=== PATIENT | female | born 1935 | race Asian ===

== ENCOUNTER 2016-07-15 07:25 | Emergency (ER) | payer MEDICARE, OTHER ==
[2016-07-15] MEDS ORDERED: OXYMETAZOLINE NASAL SPRAY NAS STA (07:50)
[2016-07-15] MEDS ORDERED: OXYMETAZOLINE NASAL SPRAY NAS ONE (07:53)
== END 2016-07-15 08:45 | disposition home or self-care (01) ==
DX: R04.0 Epistaxis (principal)
CPT/HCPCS: 30901; 36415; 85025; 99282; 99283; A9270

== ENCOUNTER 2017-05-18 09:59 | Emergency (ER) | payer MEDICARE, OTHER ==
[2017-05-18 10:17] VITALS: BP 144/91
[2017-05-18] MEDS ORDERED: LIDOCAINE 1%-EPI 1:100000 20 ML MDV SUBQ STA (10:19)
--- NOTE | 2017-05-18 10:21 | ED Physician Documentation ---
PD HPI HEENT - Stated complaint Stated Complaint: NOSE BLEED - Chief complaint Chief Complaint: Heent - History obtained from History obtained from: Patient - History of Present Illness Timing - onset: Today Timing - details: Now resolved Location: Nose - Additional information Additional information: The patient is a 80-year-old female who presents with left sided nosebleed that started when she awoke this morning between 5:00 and 6:00 am. She presents now because it continues to bleed. She had similar nosebleed yesterday morning but it resolved spontaneously. She does not take blood thinner medication, and denies any recent injury. She is treated for hypertension. She has history of nosebleed several years ago, but not since then until yesterday. 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 - Present Medications Home Medications: Ambulatory Orders Medication Instructions Recorded Confirmed Levothyroxine [Synthroid] 0 mg PO DAILY 07/15/16 07/15/16 - Allergies Allergies/Adverse Reactions: Allergies Allergy/AdvReac Type Severity Reaction Status Date / Time No Known Drug Allergies Allergy Verified 03/04/14 13:19 - Social History Does the pt smoke?: No Smoking Status: Never smoker Does the pt drink ETOH?: No Does the pt have substance abuse?: No PD ED PE NORMAL - Vitals Vital signs reviewed: Yes (Hypertension initially.) - General General: Alert and oriented X 3, Well developed/nourished - HEENT HEENT: Atraumatic, EOMI, Ears normal, Pharynx benign, Other (Currently there is no epistaxis, but a bleeding site is noted on the septal surface in the left anterior nose. There is no blood in the posterior oropharynx.) - Neck Neck: No adenopathy, No JVD - Cardiac Cardiac: RRR, No murmur - Respiratory Respiratory: No respiratory distress, Clear bilaterally - Derm Derm: No rash - Extremities Extremities: No edema - Neuro Neuro: Alert and oriented X 3, No motor deficit, Normal speech Results - Vitals Vitals: Vital Signs - 24 hr 05/18/17 10:13 Temperature 36.9 C Heart Rate 84 Respiratory 18 Rate Blood Pressure 144/91 H O2 Saturation 98 Oxygen O2 Source Room air Procedures - Epistaxis Site: Left, Anterior Preparation: Lidocaine Treatment: Silver Nitrate Other: Observed - no bleeding, Pt tolerated well PD MEDICAL DECISION MAKING - ED course Complexity details: re-evaluated patient, considered differential, d/w patient, d/w family ED course: The patient's presentation is significant for left anterior epistaxis. Treatment in the emergency department included silver nitrate cautery after local anesthetic using 1% lidocaine with epinephrine. Cautery produced excellent results. I discussed with the patient and her the expected course of healing, as well as potentially worrisome signs or symptoms that should prompt reevaluation. Departure - Departure Disposition: 01 Home, Self Care Clinical Impression: Epistaxis, Acute anterior epistaxis Condition: Stable Instructions: ED Nosebleed Follow-Up: Sarwat Robledo MD [Primary Care Provider] - Comments: Try to avoid aggressive sneezing or blowing of your nose. Avoid putting your finger in your nose. Apply antibiotic ointment to the nasal mucosa using a cotton tip swab. Return to the emergency department if you develop recurrent nosebleed that does not resolve with 10-15 minutes of applying pressure. Discharge Date/Time: 05/18/17 11:51
== END 2017-05-18 11:51 | disposition home or self-care (01) ==
LOC: ED 09:59
DX: R04.0 Epistaxis (principal); I10 Essential (primary) hypertension
CPT/HCPCS: 30901; 99282

== ENCOUNTER 2017-10-21 18:07 | Emergency (ER) | payer MEDICARE, OTHER ==
[2017-10-21 18:26] VITALS: BP 132/87
[2017-10-21 18:35] LABS: BILIRUBIN,URINE NEGATIVE (NEGATIVE); GLUCOSE, URINE (UA) NEGATIVE (NEGATIVE); KETONES,URINE (UA) NEGATIVE (NEGATIVE); LEUKOCYTE ESTERASE, URINE LARGE (NEGATIVE); NITRITE,URINE NEGATIVE (NEGATIVE); OCCULT BLOOD,URINE LARGE (NEGATIVE); PH,URINE 5.5 PH (5.0-7.5); PROTEIN,URINE 30 mg/dL (NEGATIVE); UROBILINOGEN,URINE 0.2 (NORMAL) E.U./dL (NORMAL)
[2017-10-21 18:36] LABS: CLARITY,URINE HAZY (CLEAR)
[2017-10-21 18:37] LABS: HCG UR QUAL NEGATIVE
[2017-10-21 18:42] LABS: BACTERIA,URINE Many /HPF (None Seen); RBC,URINE TNTC /HPF (0-5); SQUAMOUS EPITHELIAL CELL,UR NONE SEEN (<= Few); WBC CLUMPS,URINE PRESENT
[2017-10-21 18:43] LABS: YEAST,URINE PRESENT
[2017-10-21] MEDS ORDERED: cephALEXin 250 MG CAPSULE PO STA (19:10)
--- NOTE | 2017-10-21 19:11 | ED Physician Documentation ---
History of Present Illness - Stated complaint Stated Complaint: FEMALE - Chief complaint Chief Complaint: General - History obtained from History obtained from: Patient, Family - History of Present Illness Timing: Last night Pain level max: 2 Pain level now: 0 Improved by: nothing Worsened by: urination - Additonal information Additional information: Patient is an 82-year-old female who presents to the emergency department with lower abdominal discomfort, dysuria and hematuria since last night. Has history of UTIs with same. 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 - Present Medications Home Medications: Ambulatory Orders Medication Instructions Recorded Confirmed Levothyroxine [Synthroid] 0 mg PO DAILY 07/15/16 07/15/16 Cephalexin [Keflex] 500 mg PO Q6H #20 capsule 10/21/17 - Allergies Allergies/Adverse Reactions: Allergies Allergy/AdvReac Type Severity Reaction Status Date / Time No Known Drug Allergies Allergy Verified 03/04/14 13:19 - Social History Does the pt smoke?: No Smoking Status: Never smoker Does the pt drink ETOH?: No Does the pt have substance abuse?: No - Immunizations Immunizations are current?: Yes - POLST Patient has POLST: No PD ED PE NORMAL - Vitals Vital signs reviewed: Yes - General General: Alert and oriented X 3, No acute distress - HEENT HEENT: Moist mucous membranes - Cardiac Cardiac: RRR - Respiratory Respiratory: No respiratory distress, Clear bilaterally - Abdomen Abdomen: Soft, Non tender, Non distended - Back Back: No CVA TTP - Derm Derm: Warm and dry - Neuro Neuro: Alert and oriented X 3 Results - Vitals Vitals: Vital Signs - 24 hr 10/21/17 18:22 Temperature 36.7 C Heart Rate 98 Respiratory 16 Rate Blood Pressure 132/87 H O2 Saturation 96 Oxygen O2 Source Room air - Labs Labs: Microbiology 10/21/17 18:25 Urine Culture - Preliminary Urine,Clean Catch Escherichia Coli Laboratory Tests 10/21/17 18:25 Urine Color YELLOW Urine Clarity HAZY Urine pH 5.5 Ur Specific [place] 1.010 Urine Protein 30 H Urine Glucose (UA) NEGATIVE Urine Ketones NEGATIVE Urine Occult Blood LARGE H Urine Nitrite NEGATIVE Urine Bilirubin NEGATIVE Urine Urobilinogen 0.2 (NORMAL) Ur Leukocyte Esterase LARGE H Urine RBC TNTC H Urine WBC >25 H Urine WBC Clumps PRESENT Ur Squamous Epith Cells NONE SEEN Urine Bacteria Many H Urine Yeast PRESENT Ur Microscopic Review INDICATED Urine Culture Comments INDICATED Urine HCG, Qual NEGATIVE PD MEDICAL DECISION MAKING - ED course Complexity details: reviewed results, considered differential, d/w patient, d/w family ED course: Patient is an 82-year-old female who presents to the emergency department with a UTI. Will place on antibiotics. No evidence of pyelonephritis, urosepsis. She is well-appearing, nontoxic. Patient counseled regarding signs and symptoms for which I believe and urgent re-evaluation would be necessary. Patient with good understanding of and agreement to plan and is comfortable going home at this time This document was made in part using voice recognition software. While efforts are made to proofread this document, sound alike and grammatical errors may occur. Departure - Departure Disposition: 01 Home, Self Care Clinical Impression: UTI (urinary tract infection) Qualifiers: Urinary tract infection type: acute cystitis Hematuria presence: with hematuria Qualified Code(s): N30.01 - Acute cystitis with hematuria Condition: Good Instructions: ED UTI Cystitis Female Follow-Up: Sarwat Robledo MD [Primary Care Provider] - Within 1 week Prescriptions: Cephalexin [Keflex] 500 mg PO Q6H #20 capsule Comments: Take all antibiotics until gone. Return if you worsen. Discharge Date/Time: 10/21/17 19:18
== END 2017-10-21 19:18 | disposition home or self-care (01) ==
LOC: ED 18:07
DX: N30.01 Acute cystitis with hematuria (principal); I10 Essential (primary) hypertension; Z87.440 Personal history of urinary (tract) infections
CPT/HCPCS: 81001; 81025; 87086; 87181; 99283; A9270; 81003

== ENCOUNTER 2017-11-30 11:51 | Outpatient (CLI) | payer MEDICARE, OTHER ==
--- NOTE | 2017-11-30 12:08 | XRAY Report ---
Procedure Date: 11/30/2017 Accession Number: [id number] / [id number] Procedure: XR - Chest 2 View X-Ray CPT Code: 35870 FULL RESULT: EXAM: Chest 2 View X-Ray DATE: 11/30/2017 12:04 PM CLINICAL HISTORY: BRONCHITIS COMPARISON: CT 06/16/2015, chest x-ray 03/04/2014 TECHNIQUE: 2 views. FINDINGS: Lungs/Pleura: No focal infiltrate, effusion, or pneumothorax. Stable basilar bronchiectasis. Mediastinum: Heart and mediastinal contours are unremarkable. Other: None. IMPRESSION: Stable bronchiectasis. No evidence of acute cardiopulmonary disease. RADIA
== END 2017-11-30 11:52 | disposition home or self-care (01) ==
LOC: DI 11:51
PROVIDERS: ATTEND Family Medicine
DX: J47.9 Bronchiectasis, uncomplicated (principal)
CPT/HCPCS: 71046

== ENCOUNTER 2018-07-09 20:43 | Emergency (ER) | payer MEDICARE, OTHER ==
[2018-07-09 21:27] LABS: BASOPHILS # (AUTO) 0.1 10^3/uL (0.0-0.1); BASOPHILS % (AUTO) 0.8 %; EOSINOPHILS # (AUTO) 0.4 10^3/uL (0.0-0.7); EOSINOPHILS % (AUTO) 5.5 %; HGB - HEMOGLOBIN 12.5 g/dL (12.0-16.0); LYMPHOCYTES # (AUTO) 2.8 10^3/uL (1.5-3.5); MEAN CORPUSCULAR HEMOGLOBIN 29.5 pg (27.0-31.0); MEAN CORPUSCULAR HGB CONC 32.6 g/dL (32.0-36.0); MEAN CORPUSCULAR VOLUME 90.5 fL (81.0-99.0); MEAN PLATELET VOLUME 7.6 fL (7.9-10.8); MONOCYTES # (AUTO) 0.5 10^3/uL (0.0-1.0); MONOCYTES % (AUTO) 7.5 %; NEUTROPHILS # (AUTO) 3.5 10^3/uL (1.5-6.6); NEUTROPHILS % (AUTO) 48.2 %; PLT - PLATELET COUNT 258 10^3/uL (130-450); RED BLOOD COUNT 4.25 10^6/uL (4.20-5.40); RED CELL DISTRIBUTION WIDTH 13.2 % (12.0-15.0); WHITE BLOOD COUNT 7.3 x10^3/uL (4.8-10.8)
[2018-07-09 21:33] LABS: INR 1.1 (0.8-1.2); PT - PROTHROMBIN TIME 12.3 secs (9.9-12.6)
--- NOTE | 2018-07-09 21:34 | ED Physician Documentation ---
History of Present Illness - Stated complaint Stated Complaint: VOMITING BLOOD - Chief complaint Chief Complaint: Resp - History obtained from History obtained from: Patient - History of Present Illness Timing: Today (this morning) Pain level max: 0 Pain level now: 0 Improved by: nothing Worsened by: no exacerbating factors - Additonal information Additional information: coughing since this morning, took aspirin this morning (she says she took this thinking it would help with cough; she says she does not take aspirin on a regular basis). She says the cough was not productive but that she noted "blood in my spit". She says this evening she lay down and subsequently had vomiting with blood and small clots Review of Systems Constitutional: denies: Fever, Chills, Sweats Cardiac: reports: Reviewed and negative Respiratory: denies: Dyspnea, Cough, Hemoptysis, Wheezing GI: reports: Nausea, Vomiting, Hematemesis. 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 - Present Medications Home Medications: Ambulatory Orders Medication Instructions Recorded Confirmed Levothyroxine [Synthroid] 1 tab PO DAILY 07/15/16 07/09/18 Cephalexin [Keflex] 500 mg PO Q6H #20 capsule 10/21/17 - Allergies Allergies/Adverse Reactions: Allergies Allergy/AdvReac Type Severity Reaction Status Date / Time No Known Drug Allergies Allergy Verified 07/09/18 20:54 - Social History Does the pt smoke?: No Smoking Status: Former smoker Does the pt drink ETOH?: No Does the pt have substance abuse?: No - Immunizations Immunizations are current?: Yes - POLST Patient has POLST: No PD ED PE NORMAL - Vitals Vital signs reviewed: Yes - General General: Alert and oriented X 3, No acute distress, Well developed/nourished - Cardiac Cardiac: RRR, No murmur - Respiratory Respiratory: No respiratory distress, Clear bilaterally - Abdomen Abdomen: Normal bowel sounds, Soft, Non tender, Non distended, No organomegaly - Derm Derm: Normal color, Warm and dry - Extremities Extremities: No edema Results - Vitals Vitals: Vital Signs - 24 hr 07/09/18 07/09/18 20:50 23:05 Temperature 36.7 C 36.5 C Heart Rate 96 87 Respiratory 18 18 Rate Blood Pressure 148/85 H 144/83 H O2 Saturation 97 96 Oxygen O2 Source Room air - Labs Labs: Laboratory Tests 07/09/18 07/09/18 07/09/18 21:21 21:21 21:21 WBC 7.3 RBC 4.25 Hgb 12.5 Hct 38.5 MCV 90.5 MCH 29.5 MCHC 32.6 RDW 13.2 Plt Count 258 MPV 7.6 L Neut # (Auto) 3.5 Lymph # (Auto) 2.8 [place] # (Auto) 0.5 Eos # (Auto) 0.4 Baso # (Auto) 0.1 Absolute Nucleated RBC 0.00 Nucleated RBC % 0.0 PT 12.3 INR 1.1 APTT 32.7 Sodium 137 Potassium 3.7 Chloride 103 Carbon Dioxide 25 Anion Gap 9.0 BUN 16 Creatinine 0.8 Estimated GFR (MDRD) 69 L Glucose 120 H Calcium 9.3 Total Bilirubin 0.7 AST 23 ALT 16 Alkaline Phosphatase 69 Total Protein 7.9 Albumin 4.2 Globulin 3.7 Albumin/Globulin Ratio 1.1 Lipase 53 H - Rads (name of study) chest xray Radiology: Prelim report reviewed, See rad report PD MEDICAL DECISION MAKING - ED course Complexity details: reviewed old records, reviewed results, re-evaluated baldemar wills, considered differential, d/w patient Departure - Departure Disposition: 01 Home, Self Care Clinical Impression: Upper GI bleeding Condition: Good Instructions: ED Bleed UGI Stable Comments: Follow up with your primary care provider: call in the morning to arrange for next available appointment. Discharge Date/Time: 07/09/18 23:06
[2018-07-09 21:40] LABS: ALBUMIN 4.2 g/dL (3.2-5.5); ALBUMIN/GLOBULIN RATIO 1.1 (1.0-2.2); BILIRUBIN,TOTAL 0.7 mg/dL (0.2-1.0); CALCIUM 9.3 mg/dL (8.5-10.3); CREATININE 0.8 mg/dL (0.4-1.0); TOTAL PROTEIN 7.9 g/dL (6.7-8.2)
--- NOTE | 2018-07-09 22:04 | XRAY Report ---
Reason: hemoptysis Procedure Date: 07/09/2018 Accession Number: [id number] / [id number] Procedure: XR - Chest 2 View X-Ray CPT Code: 28100 FULL RESULT: EXAM: CHEST RADIOGRAPHY EXAM DATE: 07/09/2018 09:35 PM. CLINICAL HISTORY: Hemoptysis. COMPARISON: CHEST 2 VIEW 11/30/2017 11:52 AM. TECHNIQUE: 2 views. FINDINGS: Lungs/Pleura: Stable mild bronchiectasis. No new consolidation, effusion, or pneumothorax. Mediastinum: Heart and mediastinal contours are unremarkable. Other: None. IMPRESSION: Stable mild basilar bronchiectasis. No significant interval change. RADIA
[2018-07-09] MEDS ORDERED: guaiFENesin/DEXTROMETHORPHAN 10 ML UDC PO STA (22:53)
[2018-07-09 23:06] VITALS: BP 144/83
== END 2018-07-09 23:06 | disposition home or self-care (01) ==
LOC: ED 20:43
DX: K92.2 Gastrointestinal hemorrhage, unspecified (principal); I10 Essential (primary) hypertension; E03.9 Hypothyroidism, unspecified; Z87.891 Personal history of nicotine dependence
CPT/HCPCS: 36415; 71046; 80053; 83690; 85025; 85610; 85730; 99283; A9270

== ENCOUNTER 2021-03-08 14:00 | Outpatient (CLI) | payer MEDICARE, OTHER | END 2021-03-08 23:59 | disposition home or self-care (01) | LOC: COV 14:00 | PROVIDERS: ATTEND Family Medicine | DX: R05.9 Cough, unspecified (principal); R06.02 Shortness of breath; Z20.822 Contact with and (suspected) exposure to COVID-19 ==

== ENCOUNTER 2021-11-21 07:05 | Emergency (ER) | payer MEDICARE, OTHER ==
[2021-11-21 07:36] LABS: BASOPHILS % (AUTO) 0.8 %; EOSINOPHILS # (AUTO) 0.2 10^3/uL (0.0-0.7); EOSINOPHILS % (AUTO) 3.8 %; HCT - HEMATOCRIT 40.8 % (37.0-47.0); HGB - HEMOGLOBIN 13.7 g/dL (12.0-16.0); LYMPHOCYTES # (AUTO) 1.9 10^3/uL (1.5-3.5); LYMPHOCYTES % (AUTO) 36.3 %; MEAN CORPUSCULAR HEMOGLOBIN 30.2 pg (27.0-31.0); MEAN CORPUSCULAR HGB CONC 33.6 g/dL (32.0-36.0); MEAN CORPUSCULAR VOLUME 90.1 fL (81.0-99.0); MEAN PLATELET VOLUME 9.9 fL (7.9-10.8); MONOCYTES # (AUTO) 0.4 10^3/uL (0.0-1.0); MONOCYTES % (AUTO) 7.6 %; NEUTROPHILS # (AUTO) 2.7 10^3/uL (1.5-6.6); NEUTROPHILS % (AUTO) 51.3 %; PLT - PLATELET COUNT 280 10^3/uL (130-450); RED BLOOD COUNT 4.53 10^6/uL (4.20-5.40); RED CELL DISTRIBUTION WIDTH 12.4 % (12.0-15.0); WHITE BLOOD COUNT 5.3 x10^3/uL (4.8-10.8)
[2021-11-21 07:48] LABS: ALBUMIN 4.3 g/dL (3.2-5.5); ALBUMIN/GLOBULIN RATIO 1.3 (1.0-2.2); BILIRUBIN,TOTAL 0.6 mg/dL (0.2-1.0); CALCIUM 9.4 mg/dL (8.5-10.3); CREATININE 0.6 mg/dL (0.4-1.0); POTASSIUM 3.6 mmol/L (3.5-5.0); TOTAL PROTEIN 7.5 g/dL (6.7-8.2)
[2021-11-21 08:07] LABS: BILIRUBIN,URINE NEGATIVE (NEGATIVE); GLUCOSE, URINE (UA) NEGATIVE (NEGATIVE); KETONES,URINE (UA) 40 mg/dL (NEGATIVE); LEUKOCYTE ESTERASE, URINE NEGATIVE (NEGATIVE); NITRITE,URINE NEGATIVE (NEGATIVE); OCCULT BLOOD,URINE NEGATIVE (NEGATIVE); PROTEIN,URINE NEGATIVE (NEGATIVE); UROBILINOGEN,URINE 1 (NORMAL) E.U./dL (NORMAL)
--- NOTE | 2021-11-21 08:12 | ED Physician Documentation ---
PD HPI ABD PAIN - Stated complaint Stated Complaint: ABD PX - Chief complaint Chief Complaint: Abd Pain - History obtained from History obtained from: Patient - History of Present Illness Timing - onset: How many days ago (3) Timing - duration: Days (3) Timing - details: Gradual onset Pain level max: 5 Pain level now: 4 Quality: Aching, Dull Location: Epigastric Radiation: No: Chest, , Lower back, Left flank, Left shoulder, Right flank, Right shoulder, Upper back Associated symptoms: No: Fever, Nausea, Vomiting, Hematemesis, Diarrhea Recently seen: Not recently seen - Additional information Additional information: 86-year-old female presents to the emergency department with epigastric abdominal pain that started about 3 days ago. Nothing seems to make it better or worse. She states it is constant, dull, aching. Nonradiating. No shortness of breath. No chest pain. She states that it does feel hard to take a deep breath because her stomach hurts. 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 : None HEENT: None Psych: None Musculoskeletal: Osteoarthritis Derm: None - Past Surgical History 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 - Present Medications Home Medications: Ambulatory Orders Medication Instructions Recorded Confirmed Levothyroxine [Synthroid] 25 tab PO DAILY 07/15/16 11/21/21 Albuterol Sulf [Ventolin Hfa 1 - 2 puffs INH Q4HR PRN #1 inhaler 11/21/21 Inhaler] Amlodipine Besylate [Norvasc] 10 mg PO DAILY 11/21/21 11/21/21 Azithromycin [Zithromax] 0 mg PO DAILY #6 tablet 11/21/21 Doxycycline Monohydrate 100 mg PO BID #20 cap 11/21/21 Levocetirizine Dihydrochloride 5 mg PO DAILY 11/21/21 11/21/21 Telmisartan 40 mg PO DAILY 11/21/21 11/21/21 - Allergies Allergies/Adverse Reactions: Allergies Allergy/AdvReac Type Severity Reaction Status Date / Time No Known Drug Allergies Allergy Verified 11/21/21 07:20 - Social History Does the pt smoke?: No Smoking Status: Former smoker Does the pt drink ETOH?: No Does the pt have substance abuse?: No - Immunizations Immunizations are current?: Yes - POLST Patient has POLST: No PD ED PE NORMAL - Vitals Vital signs reviewed: Yes - General General: Alert and oriented X 3, No acute distress - HEENT HEENT: PERRL, Moist mucous membranes - Neck Neck: Supple, no meningeal sign - Cardiac Cardiac: RRR, No murmur, Strong equal pulses - Respiratory Respiratory: No respiratory distress, Other (Bibasilar crackles) - Abdomen Abdomen: Soft, Non tender, Non distended - Back Back: No spinal TTP - Derm Derm: Warm and dry, No rash - Extremities Extremities: No edema - Neuro Neuro: Alert and oriented X 3 - Psych Psych: Normal mood, Normal affect Results - Vitals Vitals: Vital Signs - 24 hr 11/21/21 11/21/21 11/21/21 07:20 07:38 09:40 Temperature 36.8 C Heart Rate 88 85 82 Respiratory 22 16 24 Rate Blood Pressure 182/88 H 171/92 H 158/126 H O2 Saturation 96 96 99 11/21/21 11/21/21 10:51 11:00 Temperature Heart Rate 92 90 Respiratory 20 18 Rate Blood Pressure 141/105 H O2 Saturation 99 Oxygen O2 Source Room air - EKG (time done) 0840 Rate: Rate (enter#) (78) Rhythm: NSR [place]: Normal Intervals: Prolonged NV QRS: Normal Ischemia: Normal ST segments - Labs Labs: Laboratory Tests 11/21/21 11/21/21 11/21/21 07:25 07:25 07:25 WBC 5.3 RBC 4.53 Hgb 13.7 Hct 40.8 MCV 90.1 MCH 30.2 MCHC 33.6 RDW 12.4 Plt Count 280 MPV 9.9 Neut # (Auto) 2.7 Lymph # (Auto) 1.9 [place] # (Auto) 0.4 Eos # (Auto) 0.2 Baso # (Auto) 0.0 Absolute Nucleated RBC 0.00 Nucleated RBC % 0.0 Sodium 142 Potassium 3.6 Chloride 106 Carbon Dioxide 23 Anion Gap 13.0 BUN 15 Creatinine 0.6 Estimated GFR (MDRD) 95 Glucose 125 H Calcium 9.4 Total Bilirubin 0.6 AST 27 ALT 20 Alkaline Phosphatase 58 Troponin I High Sens 8.4 Total Protein 7.5 Albumin 4.3 Globulin 3.2 Albumin/Globulin Ratio 1.3 Lipase 49 Urine Color Urine Clarity Urine pH Ur Specific [place] Urine Protein Urine Glucose (UA) Urine Ketones Urine Occult Blood Urine Nitrite Urine Bilirubin Urine Urobilinogen Ur Leukocyte Esterase Ur Microscopic Review Urine Culture Comments 11/21/21 07:50 WBC RBC Hgb Hct MCV MCH MCHC RDW Plt Count MPV Neut # (Auto) Lymph # (Auto) [place] # (Auto) Eos # (Auto) Baso # (Auto) Absolute Nucleated RBC Nucleated RBC % Sodium Potassium Chloride Carbon Dioxide Anion Gap BUN Creatinine Estimated GFR (MDRD) Glucose Calcium Total Bilirubin AST ALT Alkaline Phosphatase Troponin I High Sens Total Protein Albumin Globulin Albumin/Globulin Ratio Lipase Urine Color YELLOW Urine Clarity CLEAR Urine pH 6.0 Ur Specific [place] 1.020 Urine Protein NEGATIVE Urine Glucose (UA) NEGATIVE Urine Ketones 40 H Urine Occult Blood NEGATIVE Urine Nitrite NEGATIVE Urine Bilirubin NEGATIVE Urine Urobilinogen 1 (NORMAL) Ur Leukocyte Esterase NEGATIVE Ur Microscopic Review NOT INDICATED Urine Culture Comments NOT INDICATED - Rads (name of study) CT abdomen pelvis Radiology: Final report received, EMP read contemporaneously, See rad report Chest x-ray Radiology: Final report received, EMP read contemporaneously, See rad report PD MEDICAL DECISION MAKING - ED course Complexity details: reviewed results, re-evaluated patient, considered differential, d/w patient, d/w family ED course: CT abdomen pelvis does not show any acute abnormality other than patchy airspace opacities in the bilateral lung bases. Does have a history of pneumonia. Has had coughing. We will place her on antibiotics for this. Patient is well- appearing, nontoxic. Afebrile. No hypoxia. No respiratory distress. Patient also felt better after albuterol. Will prescribe this for home as well Patient counseled regarding signs and symptoms for which I believe and urgent re- evaluation would be necessary. Patient with good understanding of and agreement to plan and is comfortable going home at this time This document was made in part using voice recognition software. While efforts are made to proofread this document, sound alike and grammatical errors may occur. IMPRESSION: 1. Patchy airspace opacities at the bilateral lung bases with bronchial wall thickening and bronchiectasis more severe on the left than on the right. Differential considerations include multifocal pneumonia, aspiration, and fibrotic change. Chest x-ray recommended to further characterize pulmonary findings. 2. No acute intra-abdominal findings. Normal appendix. IMPRESSION: Bibasilar opacities most notable on the left. This corresponds to areas of airspace opacities, bronchial wall thickening and bronchiectasis on recent CT. Departure - Departure Disposition: Home, Self Care Clinical Impression: Pneumonia Qualifiers: Pneumonia type: due to unspecified organism Laterality: bilateral Lung location: lower lobe of lung Qualified Code(s): J18.9 - Pneumonia, unspecified organism Abdominal pain Qualifiers: Abdominal location: unspecified location Qualified Code(s): R10.9 - Unspecified abdominal pain Condition: Good Instructions: ED Pneumonia Adult Follow-Up: Sarwat Robledo MD [Primary Care Provider] - Within 1 week Prescriptions: Albuterol Sulf [Ventolin Hfa Inhaler] 1 - 2 puffs INH Q4HR PRN #1 inhaler PRN Reason: Shortness Of Air/Wheezing Doxycycline Monohydrate 100 mg PO BID #20 cap Azithromycin [Zithromax] 0 mg PO DAILY #6 tablet Comments: Take all antibiotics until gone. Follow-up with your doctor for further care. Your prescriptions were sent to [facility]. You should have a repeat x-ray after you finish your treatment to ensure resolution of your x-ray. Discharge Date/Time: 11/21/21 11:07
[2021-11-21 08:33] LABS: CLARITY,URINE CLEAR (CLEAR)
--- NOTE | 2021-11-21 09:45 | CT Report ---
PROCEDURE: Abdomen/Pelvis WO INDICATIONS: epigastric abd pain TECHNIQUE: Noncontrast 5 mm thick sections acquired from the diaphragms to the symphysis. 5 mm coronal and sagi ttal reformats were then performed. For radiation dose reduction, the following was used: automated exposure control, adjustment of mA and/or kV according to patient size. COMPARISON: None. FINDINGS: Image quality: Excellent. ABDOMEN: Lung bases: Patchy airspace opacities, bronchial wall thickening, and bronchiectasis are present at t he bilateral lung bases. These findings are more severe on the left than on the right. Heart is rob l size a low density lesion within the right hepatic lobe likely represents a small hepatic cyst whic h is incompletely characterized.. No pericardial effusion. Solid organs: Liver and spleen are normal in size. A 2.5 cm lamellated gallstone is present within t he gallbladder fundus. No gallbladder wall thickening or pericholecystic fluid. Pancreas is normal in contours. No adrenal nodules. Kidneys are normal in size, without hydronephrosis or nephrolithiasi s. Peritoneum and bowel: Unenhanced bowel loops demonstrate normal wall thickness and caliber. The roseann endix is thin-walled. No free fluid or air. Nodes and vessels: No retroperitoneal or mesenteric adenopathy by size criteria. Aorta and inferior vena cava are normal in caliber. Scattered atheromatous calcifications are present throughout the a bdominal aorta. Miscellaneous: No ventral hernias. PELVIS: Genitourinary: Bladder wall thickness is normal. Miscellaneous: No inguinal hernias or adenopathy. Bones: No suspicious bony lesions. No vertebral body compression fractures. IMPRESSION: 1. Patchy airspace opacities at the bilateral lung bases with bronchial wall thickening and bronchiec tasis more severe on the left than on the right. Differential considerations include multifocal pneum onia, aspiration, and fibrotic change. Chest x-ray recommended to further characterize pulmonary find ings. 2. No acute intra-abdominal findings. Normal appendix. Reviewed by: Thais Bear MD on 11/21/2021 9:44 AM PDT Approved by: Thais Bear MD on 11/21/2021 9:44 AM PDT Station ID: [id number]
[2021-11-21] MEDS ORDERED: ALBUTEROL 1 PUFF INH STA (10:22)
--- NOTE | 2021-11-21 10:47 | XRAY Report ---
PROCEDURE: Chest 2 View X-Ray INDICATIONS: cough, dyspnea, abnormal Ct abd TECHNIQUE: 2 view(s) of the chest. COMPARISON: None. FINDINGS: Surgical changes and devices: None. Lungs and pleura: There is slight appearance of opacities within the bases more notable on the left. Mediastinum: Mediastinal contours are normal. Heart size is normal. Bones and chest wall: No suspicious bony abnormalities. Soft tissues appear unremarkable. IMPRESSION: Bibasilar opacities most notable on the left. This corresponds to areas of airspace opac ities, bronchial wall thickening and bronchiectasis on recent CT. Reviewed by: Allison Olivas MD on 11/21/2021 10:45 AM PDT Approved by: Allison Olivas MD on 11/21/2021 10:45 AM PDT Station ID: [id number]
[2021-11-21 11:06] VITALS: BP 141/105
== END 2021-11-21 11:07 | disposition home or self-care (01) ==
LOC: ED 07:05
DX: J18.9 Pneumonia, unspecified organism (principal); R10.13 Epigastric pain; I10 Essential (primary) hypertension; Z87.891 Personal history of nicotine dependence
CPT/HCPCS: 36415; 80053; 81001; 81003; 83690; 84484; 85025; 87086; 93005; 94640; 94664; 99284

== ENCOUNTER 2022-01-23 12:51 | Outpatient (CLI) | payer MEDICARE, OTHER ==
--- NOTE | 2022-01-23 13:24 | XRAY Report ---
PROCEDURE: Chest 2 View X-Ray INDICATIONS: PNA TECHNIQUE: 2 view(s) of the chest. COMPARISON: 01/03/2022 FINDINGS: Surgical changes and devices: None. Lungs and pleura: No pleural effusions or pneumothorax. There is increased, moderate patchy airspace opacity within the left lung base. Mediastinum: Mediastinal contours are normal. Heart size is normal. Bones and chest wall: No suspicious bony abnormalities. Soft tissues appear unremarkable. IMPRESSION: Left lung base pneumonia. Follow-up PA and lateral chest x-rays or chest CT is recommend ed to ensure resolution, and to exclude underlying neoplasm. Reviewed by: Ariel Woodard MD on 01/23/2022 1:22 PM PDT Approved by: Ariel Woodard MD on 01/23/2022 1:22 PM PDT Station ID: [id number]
== END 2022-01-23 12:52 | disposition home or self-care (01) ==
LOC: DI 12:51
PROVIDERS: ATTEND Family Medicine
DX: J18.9 Pneumonia, unspecified organism (principal)

== ENCOUNTER 2022-03-04 12:55 | Outpatient (CLI) | payer MEDICARE, OTHER ==
--- NOTE | 2022-03-04 15:20 | XRAY Report ---
PROCEDURE: Chest 2 View X-Ray INDICATIONS: PNA TECHNIQUE: 2 view(s) of the chest. COMPARISON: 01/23/2022, 01/03/2022, 11/21/2021. Correlation is also made with chest CT, 11/10/2021. FINDINGS: Surgical changes and devices: None. Lungs and pleura: Within the left lung base, there is a mild amount of poorly defined opacity seen, which is improved compared to the 01/23/2022 examination. The lungs otherwise appear clear, without fi ndings of pneumothorax or effusion. Mediastinum: The aorta is prominent and tortuous. The cardiac contours are within normal limits. Bones and chest wall: No suspicious bony abnormalities. Age-appropriate degenerative changes are se en. Mild levoconvex scoliotic curvature is seen. Soft tissues appear unremarkable. IMPRESSION: Improving left lung base infiltrate. Please consider additional follow-up radiograph versus CT for further evaluation. Reviewed by: Corey Fink MD on 03/04/2022 2:19 PM MICHAEL Approved by: Corey Fink MD on 03/04/2022 2:19 PM MICHAEL Station ID: [id number]
== END 2022-03-04 12:56 | disposition home or self-care (01) ==
LOC: DI 12:55
PROVIDERS: ATTEND Family Medicine
DX: J18.9 Pneumonia, unspecified organism (principal)

== ENCOUNTER 2022-09-08 13:45 | Outpatient (CLI) | payer MEDICARE, OTHER ==
--- NOTE | 2022-09-08 15:31 | XRAY Report ---
PROCEDURE: Chest 2 View X-Ray INDICATIONS: COUGH TECHNIQUE: 2 views of the chest were acquired. COMPARISON: None. FINDINGS: Surgical changes and devices: None. Lungs and pleura: Patchy left basilar airspace opacity. Mediastinum: Mediastinal contours appear normal. Heart size is normal. Bones and chest wall: No suspicious bony lesions. Overlying soft tissues appear unremarkable. IMPRESSION: Patchy left basilar airspace opacity, concerning for infection. Repeat radiographs following treatmen t is recommended to exclude underlying mass. Reviewed by: Luis M Rosenbaum on 09/08/2022 3:29 PM PDT Approved by: Luis M Rosenbaum on 09/08/2022 3:29 PM PDT Station ID: [id number]
== END 2022-09-08 13:46 | disposition home or self-care (01) ==
LOC: DI 13:45
PROVIDERS: ATTEND Family Medicine
DX: R05.9 Cough, unspecified (principal)